=== PATIENT | male | born 1985 | race Hispanic/Latino ===

== ENCOUNTER 2017-04-11 10:07 | Emergency (ER) | payer OTHER ==
[2017-04-11 10:26] VITALS: O2SAT 98
--- NOTE | 2017-04-11 10:44 | ED PDOC ---
HPI: Chest Pain Time Seen by Provider: 04/11/17 10:24 Chief Complaint (Nursing): Chest Pain Chief Complaint (Provider): Chest Pain History Per: Patient History/Exam Limitations: no limitations Onset/Duration Of Symptoms: Hrs (x1) Current Symptoms Are (Timing): Better Additional Complaint(s): 32 year old male with medical history of myocardial bridging, who presents to the emergency department with a complaint of dizziness associated with chest discomfort, fever and chills while driving to work 1 hour prior to arrival. Patient also reported some headache, cough and nausea for the past 2 days but denied any of those symptoms presently. He also denied any sore throat, sweats, shoulder pain, arm pain or prior episodes. Of note, last cardiac catheterization was performed in 08/2013 with normal findings. Patient stated resolution of symptoms upon arrival. PMD: Oliverio Simons MD Past Medical History Reviewed: Historical Data, Nursing Documentation, Vital Signs Vital Signs: Last Vital Signs Temp 98.9 F 04/11/17 10:24 Pulse 94 H 04/11/17 12:10 Resp 17 04/11/17 12:10 BP 140/80 04/11/17 12:10 Pulse Ox 98 04/11/17 12:12 - Medical History PMH: Cardia Arrhythmia, HTN - Surgical History Surgical History: Denies: No Surg Hx - Family History Family History: Denies: [place], CAD, Hypertension - Social History Current smoker - smoking cessation education provided: No Ex-Smoker (has not smoked in the last 12 months): Yes Alcohol: Social Drugs: Denies - Allergies Allergies/Adverse Reactions: Allergies Allergy/AdvReac Type Severity Reaction Status Date / Time Penicillins Allergy RASH Verified 04/11/17 10:37 Review of Systems ROS Statement: Except As Marked, All Systems Reviewed And Found Negative Constitutional: Positive for: Fever, Chills. Negative for: Sweats ENT: Negative for: Throat Pain Cardiovascular: Positive for: Chest Pain (discomfort) Respiratory: Positive for: Cough Gastrointestinal: Positive for: Nausea Musculoskeletal: Negative for: Shoulder Pain, Arm Pain Neurological: Positive for: Headache, Dizziness Physical Exam - Reviewed Nursing Documentation Reviewed: Yes Vital Signs Reviewed: Yes - Physical Exam Appears: Positive for: Well, Non-toxic, No Acute Distress Head Exam: Positive for: ATRAUMATIC, NORMAL INSPECTION, NORMOCEPHALIC Skin: Positive for: Normal Color. Negative for: Rash Eye Exam: Positive for: Normal appearance, EOMI, PERRL. Negative for: Nystagmus Neck: Positive for: Normal, Painless ROM, Supple. Negative for: Decreased ROM Cardiovascular/Chest: Positive for: Regular Rate, Rhythm, Chest Non Tender. Negative for: Murmur Respiratory: Positive for: Normal Breath Sounds. Negative for: Decreased Breath Sounds, Wheezing, Respiratory Distress Pulses-Dorsalis Pedis (L): 2+ Pulses-Dorsalis Pedis (R): 2+ Gastrointestinal/Abdominal: Positive for: Normal Exam, Soft. Negative for: Tenderness Extremity: Positive for: Normal ROM (upper/lower). Negative for: Pedal Edema, Calf Tenderness Neurologic/Psych: Positive for: Alert, Oriented - Laboratory Results Result Diagrams: 04/11/17 11:00 04/11/17 11:00 - ECG O2 Sat by Pulse Oximetry: 98 (RA) Pulse Ox Interpretation: Normal Medical Decision Making Medical Decision Making: Initial Impression: Chest pain Initial Plan: * EKG * BMP * CK-MB * CPK * CBC * ESR ___ Time: 1043 --EKG: NSR at [address] elevation or depression noted. Scribe Attestation: Documented by Nurys aHrden, acting as a scribe for Essie Knox MD. Provider Scribe Attestation: All medical record entries made by the Scribe were at my direction and personally dictated by me. I have reviewed the chart and agree that the record accurately reflects my personal performance of the history, physical exam, medical decision making, and the department course for this patient. I have also personally directed, reviewed, and agree with the discharge instructions and disposition. 11.45am- labs reviewed. troponin normal. 2nd call place to Dr. Simons's office. Case d/w Dr. Simons. REpeat EKG and troponin. If negative, may discharge., Disposition - Clinical Impression Clinical Impression: Chest pain - Patient ED Disposition Is Patient to be Admitted: No Doctor Will See Patient In The: Office Counseled Patient/Family Regarding: Diagnosis, Need For Followup - Disposition Disposition: Routine/Home Disposition Time: 14:55 Condition: STABLE Additional Instructions: Follow up with Dr. SIMONS next week as advised. Instructions: Chest Pain (ED) Forms: [facility] (K[place]z) - POA Present On Arrival: None
[2017-04-11 11:11] LABS: BASO # 0.2 K/uL (0.0-0.2); BASO % 1.3 % (0.0-2.0); EOS # 0.1 K/uL (0.0-0.7); EOS % 0.5 % (0.0-4.0); HEMOGLOBIN 14.2 g/dL (12.0-18.0); LYMPH # 7.1 K/uL (1.0-4.3); LYMPH % 53.1 % (20.0-40.0); MEAN CELL VOLUME 83.8 fl (80.0-94.0); MEAN CORPUSCULAR HEMOGLOBIN 27.7 pg (27.0-31.0); MEAN PLATELET VOLUME 8.1 fl (7.2-11.7); MONO # 1.8 K/uL (0.0-0.8); MONO % 13.5 % (0.0-10.0); NEUT # 4.2 K/uL (1.8-7.0); NEUT % 31.6 % (50.0-75.0); NRBC % 0.5 % (0.0-0.0); PLATELET COUNT 166 K/uL (130-400); RBC 5.13 Mil/uL (4.40-5.90); RED CELL DISTRIBUTION WIDTH 14.3 % (11.5-14.5); WHITE BLOOD COUNT 13.4 K/uL (4.8-10.8)
[2017-04-11 11:25] LABS: BLOOD UREA NITROGEN 12 mg/dl (9-20); GFR AFRICAN-AMERICAN > 60; GFR NON-AFRICAN AMERICAN > 60
[2017-04-11 11:33] LABS: CK-MB 0.22 ng/mL (0.0-3.38)
[2017-04-11 13:39] LABS: ANISOCYTOSIS SLIGHT; BANDS 6 % (0-2); EOSINOPHIL 1 % (0-7); LARGE PLATELETS PRESENT; LYMPHOCYTE 35 % (20-50); MONOCYTE 11 % (0-10); NEUTROPHIL 31 % (42-75); OVALOCYTES SLIGHT; PLATELET ESTIMATE NORMAL (NORMAL); REACTIVE LYMPHOCYTES 16 % (0-0); TOTAL CELLS COUNTED 100
[2017-04-11 15:05] VITALS: BP 128/78; PULSE 78; RESP 18; TEMP 97.6
--- NOTE | 2017-04-11 18:07 | CARD ---
APPROVED REPORT EKG Measurement Heart [id number] <Conclusion> Normal sinus rhythm Nonspecific T wave abnormality Abnormal ECG
== END 2017-04-11 15:13 | disposition home or self-care (01) ==
LOC: H.ER 10:07
DX: R07.89 Other chest pain (principal); R42 Dizziness and giddiness; I10 Essential (primary) hypertension; Z88.0 Allergy status to penicillin